=== PATIENT | male | born 1950 | race African-American/Black ===

== ENCOUNTER 2017-03-23 05:14 | Inpatient (IN) | payer OTHER ==
[~2017-03-23] VITALS: Ht 165.1 cm; Wt 70.9 kg
[~2017-03-23 05:14] MED LIST: ALBU3IS INH; ALBU90OI INH; ALBU90OI6 INH; ALBU90OI61 INH; ALBUTEROL MDI; ALPR.5 PO; AMLO5 PO; ATOR20 PO; AZIT250 PO; AZIT500 PO; BENTYL20 MG PO; BENZ100A PO; BUDE10.22 INH; BUDE6HFA INH; CLOT10 SS; CODEINE-GUAIFE120 ML PO; Carisoprodol350 MG PO; Cipro500 MG PO; Cleocin HCl300 MG PO; DULO60 PO; Flagyl250 MG PO; GABA300 PO; GUAI600T33 PO; HYDACE10B PO; LAMO25 PO; LEVA.63IS INH; LEVSOD137 PO; LIDO5TP TOP; LISI20 PO; LOSA50 PO; METO25 PO; METO25ER PO; MONT10T PO; NICO21TP TOP; Naprosyn500 MG PO; PANT40 PO; PRED10; PRED10 PO; Prednisone20 MG PO; Q-Tussin100 MG/5 M PO; TUDORZA PRESS400 MCG IH; Ventolin Soln3 ML INH; Zithromax250 MG PO; [UNRECOGNIZED DRUG - OTHER]
[2017-03-23 05:37] LABS: BASOPHILS ABSOLUTE AUTO 0.02 K/mm3 (0.00-0.23); BASOPHILS PERCENT AUTO 0 % (0-2); EOSINOPHILS ABSOLUTE AUTO 0.83 K/mm3 (0.00-0.68); EOSINOPHILS PERCENT AUTO 9 % (0-6); Hematocrit 40.6 % (37.0-53.0); Hemoglobin 13.6 g/dL (13.5-17.5); IMMATURE GRAN ABSOLUTE AUTO 0.02 K/mm3 (0.00-0.10); IMMATURE GRAN PERCENT AUTO 0 % (0-1); LYMPHOCYTES ABSOLUTE AUTO 2.07 K/mm3 (0.84-5.20); LYMPHOCYTES PERCENT AUTO 22 % (21-46); MONOCYTES ABSOLUTE AUTO 0.98 K/mm3 (0.16-1.47); MONOCYTES PERCENT AUTO 10 % (4-13); Mean Corpuscular HGB 31.2 pg (26.0-34.0); Mean Corpuscular HGB Conc 33.5 g/dL (31.5-36.5); Mean Corpuscular Volume 93 fL (80-100); Mean Platelet Volume 9.3 fL (9.1-12.4); NEUTROPHILS ABSOLUTE AUTO 5.72 K/mm3 (1.96-9.15); NEUTROPHILS PERCENT AUTO 59 % (41-73); Platelet Count 315 K/mm3 (150-400); RDW Coefficient Variation 13.3 % (11.7-14.2); RDW Standard Deviation 45.2 fL (35.1-46.3); Red Blood Cell Count 4.36 M/mm3 (4.30-5.90); White Blood Cell Count 9.64 K/mm3 (4.00-11.30)
[2017-03-23 05:55] LABS: Alanine Aminotransfer (ALT/SGP 33 U/L (12-78); Albumin, Blood 3.8 g/dL (3.4-5.0); Albumin/Globulin Ratio 0.9 (0.8-1.8); Alk Phos 83 U/L (50-136); Anion Gap 8 mmol/L (6-16); Aspartate Aminotrans (AST/SGOT 26 U/L (12-37); Bilirubin, Total 0.4 mg/dL (0.1-1.0); Blood Urea Nitrogen 15 mg/dL (8-24); Bun/Creatinine Ratio 15.6 (12.0-20.0); CO2, Blood 27 mmol/L (21-32); Calcium, Blood 8.8 mg/dL (8.5-10.1); Chloride, Blood 105 mmol/L (98-108); Creatinine, Blood 0.96 mg/dL (0.60-1.20); Globulin, Blood 4.1 g/dL (2.2-4.0); Glomerular Filtration Rate >60 (60-); Glucose, Blood 103 mg/dL (70-99); Potassium, Blood 4.1 mmol/L (3.5-5.5); Sodium, Blood 140 mmol/L (136-145); Total Protein, Blood 7.9 g/dL (6.4-8.2); Troponin I <0.015 ng/mL (0.000-0.040)
[2017-03-23 06:19] LABS: Influenza A Negative (NEGATIVE); Influenza B Negative (NEGATIVE)
[2017-03-23] MEDS ORDERED: Omeprazole20 M1 PO (10:47)
[2017-03-23] MEDS ORDERED: PREG75 PO (10:48)
[2017-03-24 05:42] LABS: BASOPHILS ABSOLUTE AUTO 0.01 K/mm3 (0.00-0.23); BASOPHILS PERCENT AUTO 0 % (0-2); EOSINOPHILS ABSOLUTE AUTO 0.01 K/mm3 (0.00-0.68); EOSINOPHILS PERCENT AUTO 0 % (0-6); Hematocrit 39.3 % (37.0-53.0); Hemoglobin 12.8 g/dL (13.5-17.5); IMMATURE GRAN ABSOLUTE AUTO 0.07 K/mm3 (0.00-0.10); IMMATURE GRAN PERCENT AUTO 0 % (0-1); LYMPHOCYTES ABSOLUTE AUTO 1.68 K/mm3 (0.84-5.20); LYMPHOCYTES PERCENT AUTO 9 % (21-46); MONOCYTES ABSOLUTE AUTO 0.72 K/mm3 (0.16-1.47); MONOCYTES PERCENT AUTO 4 % (4-13); Mean Corpuscular HGB 31.1 pg (26.0-34.0); Mean Corpuscular HGB Conc 32.6 g/dL (31.5-36.5); Mean Corpuscular Volume 95 fL (80-100); Mean Platelet Volume 9.5 fL (9.1-12.4); NEUTROPHILS ABSOLUTE AUTO 17.29 K/mm3 (1.96-9.15); NEUTROPHILS PERCENT AUTO 87 % (41-73); Platelet Count 367 K/mm3 (150-400); RDW Coefficient Variation 13.6 % (11.7-14.2); RDW Standard Deviation 47.6 fL (35.1-46.3); Red Blood Cell Count 4.12 M/mm3 (4.30-5.90); White Blood Cell Count 19.78 K/mm3 (4.00-11.30)
[2017-03-24 06:03] LABS: Anion Gap 9 mmol/L (6-16); Blood Urea Nitrogen 22 mg/dL (8-24); Bun/Creatinine Ratio 23.6 (12.0-20.0); CO2, Blood 25 mmol/L (21-32); Calcium, Blood 9.6 mg/dL (8.5-10.1); Chloride, Blood 102 mmol/L (98-108); Creatinine, Blood 0.93 mg/dL (0.60-1.20); Glomerular Filtration Rate >60 (60-); Glucose, Blood 129 mg/dL (70-99); Potassium, Blood 4.3 mmol/L (3.5-5.5); Sodium, Blood 136 mmol/L (136-145)
[2017-03-25] MEDS ORDERED: AZIT250 PO (12:01)
[2017-03-25] MEDS ORDERED: BENZ100A PO (12:01)
[2017-03-25] MEDS ORDERED: GUAI600T33 PO (12:02)
[2018-02-07] MEDS ORDERED: ROBITUSSIN100 MG/5 M PO (00:11)
[2018-02-07] MEDS ORDERED: Prednisone20 MG PO (00:11)
== END 2017-03-25 13:42 | disposition home or self-care (01) | DRG 192 ==
LOC: ER 05:14 → MEDS 08:54 → ENPENDDIS 03-25 10:00 → MEDS 03-25 13:42
PROVIDERS: Emergency Medicine; Hospitalist
DX: J44.1 Chronic obstructive pulmonary disease with (acute) exacerbation (principal); E03.9 Hypothyroidism, unspecified; I10 Essential (primary) hypertension; R73.9 Hyperglycemia, unspecified; T38.0X5A Adverse effect of glucocorticoids and synthetic analogues, initial encounter; F32.9 Major depressive disorder, single episode, unspecified; E78.5 Hyperlipidemia, unspecified; M79.7 Fibromyalgia; Z79.51 Long term (current) use of inhaled steroids; Z79.899 Other long term (current) drug therapy; Z87.891 Personal history of nicotine dependence
CPT/HCPCS: 36415; 71046; 80048; 80053; 83880; 84484; 85025; 87070; 87205; 87804; 93005; 93010; 94640; 94644; 94664; 94667; 94760; 96374; 98960; 99285; J1650; J2920; J2930

== ENCOUNTER 2017-05-16 05:08 | Emergency (ER) | payer OTHER ==
[~2017-05-16] VITALS: Ht 167.6 cm; Wt 68.0 kg
[~2017-05-16 05:08] MED LIST changes: +Omeprazole20 M1 PO; +PREG75 PO
[2017-05-16] MEDS ORDERED: VITAMIN D250000 UNIT PO (05:38)
[2017-05-16 05:45] LABS: BASOPHILS ABSOLUTE AUTO 0.06 K/mm3 (0.00-0.23); BASOPHILS PERCENT AUTO 1 % (0-2); EOSINOPHILS ABSOLUTE AUTO 1.66 K/mm3 (0.00-0.68); EOSINOPHILS PERCENT AUTO 15 % (0-6); Hematocrit 39.5 % (37.0-53.0); Hemoglobin 12.9 g/dL (13.5-17.5); IMMATURE GRAN ABSOLUTE AUTO 0.03 K/mm3 (0.00-0.10); IMMATURE GRAN PERCENT AUTO 0 % (0-1); LYMPHOCYTES PERCENT AUTO 30 % (21-46); MONOCYTES ABSOLUTE AUTO 0.92 K/mm3 (0.16-1.47); MONOCYTES PERCENT AUTO 8 % (4-13); Mean Corpuscular HGB 30.6 pg (26.0-34.0); Mean Corpuscular HGB Conc 32.7 g/dL (31.5-36.5); Mean Corpuscular Volume 94 fL (80-100); Mean Platelet Volume 9.4 fL (9.1-12.4); NEUTROPHILS ABSOLUTE AUTO 5.15 K/mm3 (1.96-9.15); NEUTROPHILS PERCENT AUTO 46 % (41-73); Platelet Count 347 K/mm3 (150-400); RDW Standard Deviation 48.3 fL (35.1-46.3); Red Blood Cell Count 4.21 M/mm3 (4.30-5.90); White Blood Cell Count 11.22 K/mm3 (4.00-11.30)
[2017-05-16 06:11] LABS: Anion Gap 9 mmol/L (6-16); Blood Urea Nitrogen 19 mg/dL (8-24); Bun/Creatinine Ratio 22.2 (12.0-20.0); CO2, Blood 24 mmol/L (21-32); Calcium, Blood 8.6 mg/dL (8.5-10.1); Chloride, Blood 107 mmol/L (98-108); Creatinine, Blood 0.86 mg/dL (0.60-1.20); Glomerular Filtration Rate >60 (60-); Glucose, Blood 102 mg/dL (70-99); Potassium, Blood 4.1 mmol/L (3.5-5.5); Sodium, Blood 140 mmol/L (136-145); Troponin I <0.015 ng/mL (0.000-0.040)
[2017-05-16] MEDS ORDERED: Prednisone20 MG PO (06:13)
[2017-05-16] MEDS ORDERED: Zithromax250 MG PO (06:13)
[2018-02-07] MEDS ORDERED: Prednisone20 MG PO (00:11)
[2018-02-07] MEDS ORDERED: ROBITUSSIN100 MG/5 M PO (00:11)
== END 2017-05-16 06:37 | disposition home or self-care (01) ==
LOC: ER 05:08
PROVIDERS: Emergency Medicine
DX: J44.1 Chronic obstructive pulmonary disease with (acute) exacerbation (principal); I10 Essential (primary) hypertension; Z87.891 Personal history of nicotine dependence; Z79.899 Other long term (current) drug therapy
CPT/HCPCS: 36415; 71046; 80048; 84484; 85025; 93005; 93010; 94644; 96361; 96374; 96375; 99284; J1885; J2930; J7030

== ENCOUNTER 2017-06-05 05:20 | Emergency (ER) | payer OTHER ==
[~2017-06-05] VITALS: Ht 170.2 cm; Wt 70.3 kg
[~2017-06-05 05:20] MED LIST changes: +VITAMIN D250000 UNIT PO
[2017-06-05 05:59] LABS: BASOPHILS ABSOLUTE AUTO 0.07 K/mm3 (0.00-0.23); BASOPHILS PERCENT AUTO 1 % (0-2); EOSINOPHILS ABSOLUTE AUTO 1.51 K/mm3 (0.00-0.68); EOSINOPHILS PERCENT AUTO 13 % (0-6); Hematocrit 40.6 % (37.0-53.0); Hemoglobin 13.3 g/dL (13.5-17.5); IMMATURE GRAN ABSOLUTE AUTO 0.03 K/mm3 (0.00-0.10); IMMATURE GRAN PERCENT AUTO 0 % (0-1); LYMPHOCYTES PERCENT AUTO 25 % (21-46); MONOCYTES ABSOLUTE AUTO 0.93 K/mm3 (0.16-1.47); MONOCYTES PERCENT AUTO 8 % (4-13); Mean Corpuscular HGB 30.7 pg (26.0-34.0); Mean Corpuscular HGB Conc 32.8 g/dL (31.5-36.5); Mean Corpuscular Volume 94 fL (80-100); Mean Platelet Volume 9.6 fL (9.1-12.4); NEUTROPHILS ABSOLUTE AUTO 6.07 K/mm3 (1.96-9.15); NEUTROPHILS PERCENT AUTO 53 % (41-73); Platelet Count 312 K/mm3 (150-400); RDW Coefficient Variation 13.9 % (11.7-14.2); RDW Standard Deviation 47.8 fL (35.1-46.3); Red Blood Cell Count 4.33 M/mm3 (4.30-5.90); White Blood Cell Count 11.51 K/mm3 (4.00-11.30)
[2017-06-05 06:21] LABS: Alanine Aminotransfer (ALT/SGP 29 U/L (12-78); Albumin, Blood 3.8 g/dL (3.4-5.0); Albumin/Globulin Ratio 1.1 (0.8-1.8); Alk Phos 77 U/L (50-136); Anion Gap 7 mmol/L (6-16); Aspartate Aminotrans (AST/SGOT 18 U/L (12-37); Bilirubin, Total 0.7 mg/dL (0.1-1.0); Blood Urea Nitrogen 19 mg/dL (8-24); Bun/Creatinine Ratio 20.4 (12.0-20.0); CO2, Blood 26 mmol/L (21-32); Calcium, Blood 8.8 mg/dL (8.5-10.1); Chloride, Blood 105 mmol/L (98-108); Creatinine, Blood 0.93 mg/dL (0.60-1.20); Globulin, Blood 3.6 g/dL (2.2-4.0); Glomerular Filtration Rate >60 (60-); Glucose, Blood 105 mg/dL (70-99); Potassium, Blood 3.9 mmol/L (3.5-5.5); Sodium, Blood 138 mmol/L (136-145); Total Protein, Blood 7.4 g/dL (6.4-8.2)
[2017-06-05] MEDS ORDERED: Duoneb 2.5-0.5 M3 ML INH (07:53)
[2017-06-05] MEDS ORDERED: Prednisone20 MG PO (07:53)
[2018-02-07] MEDS ORDERED: Prednisone20 MG PO (00:11)
[2018-02-07] MEDS ORDERED: ROBITUSSIN100 MG/5 M PO (00:11)
== END 2017-06-05 08:02 | disposition home or self-care (01) ==
LOC: ER 05:20
PROVIDERS: Emergency Medicine
DX: J44.1 Chronic obstructive pulmonary disease with (acute) exacerbation (principal); I10 Essential (primary) hypertension; Z87.891 Personal history of nicotine dependence; Z79.899 Other long term (current) drug therapy
CPT/HCPCS: 36415; 71046; 80053; 85025; 93005; 93010; 94640; 94644; 96374; 99283; J2930

== ENCOUNTER 2017-07-05 21:15 | Inpatient (IN) | payer OTHER ==
[~2017-07-05] VITALS: Ht 167.6 cm; Wt 70.7 kg
[~2017-07-05 21:15] MED LIST changes: +Duoneb 2.5-0.5 M3 ML INH
[2017-07-05 21:50] LABS: BASOPHILS ABSOLUTE AUTO 0.09 K/mm3 (0.00-0.23); BASOPHILS PERCENT AUTO 1 % (0-2); EOSINOPHILS ABSOLUTE AUTO 1.56 K/mm3 (0.00-0.68); EOSINOPHILS PERCENT AUTO 14 % (0-6); Hematocrit 39.1 % (37.0-53.0); Hemoglobin 13.2 g/dL (13.5-17.5); IMMATURE GRAN ABSOLUTE AUTO 0.06 K/mm3 (0.00-0.10); IMMATURE GRAN PERCENT AUTO 1 % (0-1); LYMPHOCYTES ABSOLUTE AUTO 3.74 K/mm3 (0.84-5.20); LYMPHOCYTES PERCENT AUTO 33 % (21-46); MONOCYTES ABSOLUTE AUTO 1.12 K/mm3 (0.16-1.47); MONOCYTES PERCENT AUTO 10 % (4-13); Mean Corpuscular HGB 31.3 pg (26.0-34.0); Mean Corpuscular HGB Conc 33.8 g/dL (31.5-36.5); Mean Corpuscular Volume 93 fL (80-100); Mean Platelet Volume 9.1 fL (9.1-12.4); NEUTROPHILS ABSOLUTE AUTO 4.62 K/mm3 (1.96-9.15); NEUTROPHILS PERCENT AUTO 41 % (41-73); Platelet Count 366 K/mm3 (150-400); RDW Coefficient Variation 13.7 % (11.7-14.2); RDW Standard Deviation 46.6 fL (35.1-46.3); Red Blood Cell Count 4.22 M/mm3 (4.30-5.90); White Blood Cell Count 11.19 K/mm3 (4.00-11.30)
[2017-07-05 22:07] LABS: Alanine Aminotransfer (ALT/SGP 34 U/L (12-78); Albumin, Blood 3.7 g/dL (3.4-5.0); Alk Phos 77 U/L (50-136); Anion Gap 7 mmol/L (6-16); Aspartate Aminotrans (AST/SGOT 20 U/L (12-37); Bilirubin, Total 0.3 mg/dL (0.1-1.0); Blood Urea Nitrogen 16 mg/dL (8-24); Bun/Creatinine Ratio 15.2 (12.0-20.0); CO2, Blood 27 mmol/L (21-32); Calcium, Blood 8.7 mg/dL (8.5-10.1); Chloride, Blood 108 mmol/L (98-108); Creatinine, Blood 1.05 mg/dL (0.60-1.20); Globulin, Blood 3.7 g/dL (2.2-4.0); Glomerular Filtration Rate >60 (60-); Glucose, Blood 115 mg/dL (70-99); Potassium, Blood 3.7 mmol/L (3.5-5.5); Sodium, Blood 142 mmol/L (136-145); Total Protein, Blood 7.4 g/dL (6.4-8.2)
[2017-07-06 05:10] LABS: BASOPHILS ABSOLUTE AUTO 0.03 K/mm3 (0.00-0.23); BASOPHILS PERCENT AUTO 0 % (0-2); EOSINOPHILS ABSOLUTE AUTO 0.04 K/mm3 (0.00-0.68); EOSINOPHILS PERCENT AUTO 0 % (0-6); Hematocrit 38.5 % (37.0-53.0); Hemoglobin 12.8 g/dL (13.5-17.5); IMMATURE GRAN ABSOLUTE AUTO 0.04 K/mm3 (0.00-0.10); IMMATURE GRAN PERCENT AUTO 0 % (0-1); LYMPHOCYTES ABSOLUTE AUTO 1.21 K/mm3 (0.84-5.20); LYMPHOCYTES PERCENT AUTO 14 % (21-46); MONOCYTES ABSOLUTE AUTO 0.08 K/mm3 (0.16-1.47); MONOCYTES PERCENT AUTO 1 % (4-13); Mean Corpuscular HGB 30.5 pg (26.0-34.0); Mean Corpuscular HGB Conc 33.2 g/dL (31.5-36.5); Mean Corpuscular Volume 92 fL (80-100); Mean Platelet Volume 9.4 fL (9.1-12.4); NEUTROPHILS ABSOLUTE AUTO 7.59 K/mm3 (1.96-9.15); NEUTROPHILS PERCENT AUTO 85 % (41-73); Platelet Count 394 K/mm3 (150-400); RDW Coefficient Variation 13.7 % (11.7-14.2); RDW Standard Deviation 46.5 fL (35.1-46.3); Red Blood Cell Count 4.19 M/mm3 (4.30-5.90); White Blood Cell Count 8.99 K/mm3 (4.00-11.30)
[2017-07-06 05:39] LABS: Alanine Aminotransfer (ALT/SGP 33 U/L (12-78); Albumin, Blood 3.6 g/dL (3.4-5.0); Albumin/Globulin Ratio 0.9 (0.8-1.8); Alk Phos 75 U/L (50-136); Anion Gap 9 mmol/L (6-16); Aspartate Aminotrans (AST/SGOT 21 U/L (12-37); Bilirubin, Total 0.2 mg/dL (0.1-1.0); Blood Urea Nitrogen 18 mg/dL (8-24); CO2, Blood 24 mmol/L (21-32); Calcium, Blood 9.1 mg/dL (8.5-10.1); Chloride, Blood 105 mmol/L (98-108); Globulin, Blood 3.8 g/dL (2.2-4.0); Glomerular Filtration Rate >60 (60-); Glucose, Blood 159 mg/dL (70-99); Potassium, Blood 4.4 mmol/L (3.5-5.5); Sodium, Blood 138 mmol/L (136-145); Total Protein, Blood 7.4 g/dL (6.4-8.2)
[2017-07-06 08:33] LABS: Influenza A Negative (NEGATIVE); Influenza B Negative (NEGATIVE)
[2017-07-07] MEDS ORDERED: Cymbalta30 MG PO (10:15)
[2017-07-07] MEDS ORDERED: ROBITUSSIN COU237 ML PO (10:15)
[2017-07-07] MEDS ORDERED: [UNRECOGNIZED DRUG - OTHER] PO (10:18)
[2017-07-07] MEDS ORDERED: LEVO750 PO (10:18)
[2017-07-07] MEDS ORDERED: PRED20 PO (10:19)
== END 2017-07-07 12:03 | disposition home or self-care (01) | DRG 189 ==
LOC: ER 21:15 → MEDS 21:16
PROVIDERS: Emergency Medicine; Internal Medicine
DX: J96.01 Acute respiratory failure with hypoxia (principal); J44.1 Chronic obstructive pulmonary disease with (acute) exacerbation; F32.9 Major depressive disorder, single episode, unspecified; M79.7 Fibromyalgia; I10 Essential (primary) hypertension; E03.9 Hypothyroidism, unspecified
CPT/HCPCS: 36415; 71046; 80053; 85025; 87070; 87205; 87804; 93005; 93010; 94640; 94760; 96365; 96375; 99285; J1650; J1956; J2930; J3010

== ENCOUNTER 2017-08-14 07:52 | Emergency (ER) | payer OTHER ==
[~2017-08-14] VITALS: Ht 170.2 cm; Wt 70.3 kg
[~2017-08-14 07:52] MED LIST changes: +Cymbalta30 MG PO; +LEVO750 PO; +PRED20 PO; +ROBITUSSIN COU237 ML PO; +[UNRECOGNIZED DRUG - OTHER] PO
[2017-08-14] MEDS ORDERED: PREG75 PO (08:25)
[2017-08-14] MEDS ORDERED: MULTI VITAMIN1 EACH PO (08:29)
[2017-08-14] MEDS ORDERED: MAGNESIUM PO (08:29)
[2017-08-14] MEDS ORDERED: BUDE6HFA INH (08:30)
[2017-08-14 08:31] LABS: BASOPHILS ABSOLUTE AUTO 0.03 K/mm3 (0.00-0.23); BASOPHILS PERCENT AUTO 0 % (0-2); EOSINOPHILS ABSOLUTE AUTO 0.86 K/mm3 (0.00-0.68); EOSINOPHILS PERCENT AUTO 10 % (0-6); Hematocrit 41.9 % (37.0-53.0); Hemoglobin 13.5 g/dL (13.5-17.5); IMMATURE GRAN ABSOLUTE AUTO 0.02 K/mm3 (0.00-0.10); IMMATURE GRAN PERCENT AUTO 0 % (0-1); LYMPHOCYTES ABSOLUTE AUTO 2.37 K/mm3 (0.84-5.20); LYMPHOCYTES PERCENT AUTO 28 % (21-46); MONOCYTES ABSOLUTE AUTO 0.98 K/mm3 (0.16-1.47); MONOCYTES PERCENT AUTO 12 % (4-13); Mean Corpuscular HGB 30.6 pg (26.0-34.0); Mean Corpuscular HGB Conc 32.2 g/dL (31.5-36.5); Mean Corpuscular Volume 95 fL (80-100); Mean Platelet Volume 9.1 fL (9.1-12.4); NEUTROPHILS ABSOLUTE AUTO 4.22 K/mm3 (1.96-9.15); NEUTROPHILS PERCENT AUTO 50 % (41-73); Platelet Count 336 K/mm3 (150-400); RDW Coefficient Variation 13.3 % (11.7-14.2); RDW Standard Deviation 47.1 fL (35.1-46.3); Red Blood Cell Count 4.41 M/mm3 (4.30-5.90); White Blood Cell Count 8.48 K/mm3 (4.00-11.30)
[2017-08-14] MEDS ORDERED: Flonase 0.05% N16 GM (08:44)
[2017-08-14] MEDS ORDERED: Duoneb 2.5-0.5 M3 ML INH (08:45)
[2017-08-14 08:56] LABS: Alanine Aminotransfer (ALT/SGP 30 U/L (12-78); Albumin, Blood 3.5 g/dL (3.4-5.0); Albumin/Globulin Ratio 0.9 (0.8-1.8); Alk Phos 80 U/L (50-136); Anion Gap 6 mmol/L (6-16); Aspartate Aminotrans (AST/SGOT 21 U/L (12-37); Bilirubin, Total 0.3 mg/dL (0.1-1.0); Blood Urea Nitrogen 14 mg/dL (8-24); Bun/Creatinine Ratio 15.6 (12.0-20.0); CO2, Blood 28 mmol/L (21-32); Calcium, Blood 8.4 mg/dL (8.5-10.1); Chloride, Blood 107 mmol/L (98-108); Globulin, Blood 3.7 g/dL (2.2-4.0); Glomerular Filtration Rate >60 (60-); Glucose, Blood 99 mg/dL (70-99); Potassium, Blood 4.2 mmol/L (3.5-5.5); Sodium, Blood 141 mmol/L (136-145); Total Protein, Blood 7.2 g/dL (6.4-8.2); Troponin I <0.015 ng/mL (0.000-0.040)
[2017-08-14] MEDS ORDERED: Prednisone20 MG PO (10:25)
[2017-08-14] MEDS ORDERED: Zithromax250 MG PO (10:25)
== END 2017-08-14 10:50 | disposition home or self-care (01) ==
LOC: ER 07:52
PROVIDERS: Emergency Medicine
DX: J44.1 Chronic obstructive pulmonary disease with (acute) exacerbation (principal); I10 Essential (primary) hypertension; Z87.891 Personal history of nicotine dependence; Z79.899 Other long term (current) drug therapy; Z79.52 Long term (current) use of systemic steroids
CPT/HCPCS: 36415; 71046; 80053; 83605; 84484; 85025; 87040; 87070; 87205; 93005; 93010; 94644; 96361; 96374; 96375; 99284; J0696; J2930; J7030

== ENCOUNTER 2017-08-28 06:27 | Emergency (ER) | payer OTHER ==
[~2017-08-28] VITALS: Ht 170.2 cm; Wt 70.3 kg
[~2017-08-28 06:27] MED LIST changes: +Flonase 0.05% N16 GM; +MAGNESIUM PO; +MULTI VITAMIN1 EACH PO
[2017-08-28] MEDS ORDERED: Robaxin500 MG PO (09:07)
== END 2017-08-28 09:30 | disposition home or self-care (01) ==
LOC: ER 06:27
DX: S20.211A Contusion of right front wall of thorax, initial encounter (principal); J44.9 Chronic obstructive pulmonary disease, unspecified; I10 Essential (primary) hypertension; Z79.899 Other long term (current) drug therapy; Z87.891 Personal history of nicotine dependence; W06.XXXA Fall from bed, initial encounter
CPT/HCPCS: 71101; 99283

== ENCOUNTER 2017-09-02 15:23 | Emergency (ER) | payer OTHER ==
[~2017-09-02] VITALS: Ht 167.6 cm; Wt 70.3 kg
[~2017-09-02 15:23] MED LIST changes: +Robaxin500 MG PO
[2017-09-02 16:17] LABS: BASOPHILS ABSOLUTE AUTO 0.08 K/mm3 (0.00-0.23); BASOPHILS PERCENT AUTO 1 % (0-2); EOSINOPHILS ABSOLUTE AUTO 1.19 K/mm3 (0.00-0.68); EOSINOPHILS PERCENT AUTO 10 % (0-6); Hematocrit 42.9 % (37.0-53.0); Hemoglobin 14.1 g/dL (13.5-17.5); IMMATURE GRAN ABSOLUTE AUTO 0.04 K/mm3 (0.00-0.10); IMMATURE GRAN PERCENT AUTO 0 % (0-1); LYMPHOCYTES ABSOLUTE AUTO 2.96 K/mm3 (0.84-5.20); LYMPHOCYTES PERCENT AUTO 25 % (21-46); MONOCYTES ABSOLUTE AUTO 0.97 K/mm3 (0.16-1.47); MONOCYTES PERCENT AUTO 8 % (4-13); Mean Corpuscular HGB 30.9 pg (26.0-34.0); Mean Corpuscular HGB Conc 32.9 g/dL (31.5-36.5); Mean Corpuscular Volume 94 fL (80-100); Mean Platelet Volume 9.4 fL (9.1-12.4); NEUTROPHILS ABSOLUTE AUTO 6.45 K/mm3 (1.96-9.15); NEUTROPHILS PERCENT AUTO 55 % (41-73); Platelet Count 329 K/mm3 (150-400); RDW Coefficient Variation 13.7 % (11.7-14.2); RDW Standard Deviation 46.9 fL (35.1-46.3); Red Blood Cell Count 4.57 M/mm3 (4.30-5.90); White Blood Cell Count 11.69 K/mm3 (4.00-11.30)
[2017-09-02 16:52] LABS: Alanine Aminotransfer (ALT/SGP 42 U/L (12-78); Albumin, Blood 3.8 g/dL (3.4-5.0); Alk Phos 81 U/L (50-136); Anion Gap 8 mmol/L (6-16); Aspartate Aminotrans (AST/SGOT 26 U/L (12-37); Bilirubin, Total 0.4 mg/dL (0.1-1.0); Blood Urea Nitrogen 18 mg/dL (8-24); Bun/Creatinine Ratio 18.1 (12.0-20.0); CO2, Blood 29 mmol/L (21-32); Calcium, Blood 9.1 mg/dL (8.5-10.1); Chloride, Blood 103 mmol/L (98-108); Globulin, Blood 3.9 g/dL (2.2-4.0); Glomerular Filtration Rate >60 (60-); Glucose, Blood 110 mg/dL (70-99); Potassium, Blood 4.1 mmol/L (3.5-5.5); Sodium, Blood 140 mmol/L (136-145); Total Protein, Blood 7.7 g/dL (6.4-8.2)
[2017-09-02] MEDS ORDERED: Zithromax250 MG PO (20:02)
[2017-09-02] MEDS ORDERED: Prednisone20 MG PO (20:02)
== END 2017-09-02 20:33 | disposition home or self-care (01) ==
LOC: ER 15:23
PROVIDERS: Emergency Medicine
DX: J44.1 Chronic obstructive pulmonary disease with (acute) exacerbation (principal); Z79.899 Other long term (current) drug therapy; Z79.2 Long term (current) use of antibiotics; Z79.52 Long term (current) use of systemic steroids; J44.9 Chronic obstructive pulmonary disease, unspecified; I10 Essential (primary) hypertension; Z87.891 Personal history of nicotine dependence
CPT/HCPCS: 36415; 71046; 80053; 85025; 93005; 93010; 94640; 96361; 96374; 96375; 99284; J1885; J2930; J7030

== ENCOUNTER 2017-09-22 18:57 | Inpatient (IN) | payer OTHER ==
[~2017-09-22] VITALS: Ht 165.1 cm; Wt 75.5 kg
[2017-09-22 19:18] LABS: BASOPHILS ABSOLUTE AUTO 0.06 K/mm3 (0.00-0.23); BASOPHILS PERCENT AUTO 1 % (0-2); EOSINOPHILS ABSOLUTE AUTO 1.41 K/mm3 (0.00-0.68); EOSINOPHILS PERCENT AUTO 12 % (0-6); Hematocrit 40.6 % (37.0-53.0); Hemoglobin 13.2 g/dL (13.5-17.5); IMMATURE GRAN ABSOLUTE AUTO 0.04 K/mm3 (0.00-0.10); IMMATURE GRAN PERCENT AUTO 0 % (0-1); LYMPHOCYTES PERCENT AUTO 23 % (21-46); MONOCYTES ABSOLUTE AUTO 1.37 K/mm3 (0.16-1.47); MONOCYTES PERCENT AUTO 12 % (4-13); Mean Corpuscular HGB Conc 32.5 g/dL (31.5-36.5); Mean Corpuscular Volume 95 fL (80-100); Mean Platelet Volume 9.2 fL (9.1-12.4); NEUTROPHILS ABSOLUTE AUTO 6.14 K/mm3 (1.96-9.15); NEUTROPHILS PERCENT AUTO 53 % (41-73); Platelet Count 335 K/mm3 (150-400); RDW Coefficient Variation 13.8 % (11.7-14.2); RDW Standard Deviation 48.1 fL (35.1-46.3); Red Blood Cell Count 4.26 M/mm3 (4.30-5.90); White Blood Cell Count 11.72 K/mm3 (4.00-11.30)
[2017-09-22 19:40] LABS: Alanine Aminotransfer (ALT/SGP 31 U/L (12-78); Albumin, Blood 4.2 g/dL (3.4-5.0); Albumin/Globulin Ratio 1.1 (0.8-1.8); Alk Phos 113 U/L (50-136); Anion Gap 8 mmol/L (6-16); Aspartate Aminotrans (AST/SGOT 30 U/L (12-37); Bilirubin, Total 0.5 mg/dL (0.1-1.0); Blood Urea Nitrogen 18 mg/dL (8-24); Bun/Creatinine Ratio 17.5 (12.0-20.0); CO2, Blood 28 mmol/L (21-32); Calcium, Blood 8.7 mg/dL (8.5-10.1); Chloride, Blood 107 mmol/L (98-108); Creatinine, Blood 1.03 mg/dL (0.60-1.20); Globulin, Blood 3.8 g/dL (2.2-4.0); Glomerular Filtration Rate >60 (60-); Glucose, Blood 121 mg/dL (70-99); Potassium, Blood 4.4 mmol/L (3.5-5.5); Sodium, Blood 143 mmol/L (136-145); Troponin I <0.015 ng/mL (0.000-0.040)
[2017-09-22] MEDS ORDERED: TUDORZA PRESS400 MCG INH (22:44)
[2017-09-22] MEDS ORDERED: ACET500 PO (22:46)
[2017-09-28 04:45] LABS: Anion Gap 8 mmol/L (6-16); Blood Urea Nitrogen 31 mg/dL (8-24); Bun/Creatinine Ratio 27.4 (12.0-20.0); CO2, Blood 29 mmol/L (21-32); Chloride, Blood 100 mmol/L (98-108); Creatinine, Blood 1.13 mg/dL (0.60-1.20); Glomerular Filtration Rate >60 (60-); Glucose, Blood 140 mg/dL (70-99); Potassium, Blood 4.5 mmol/L (3.5-5.5); Sodium, Blood 137 mmol/L (136-145)
[2017-09-28] MEDS ORDERED: ROBITUSSIN NIG237 ML PO (12:17)
[2017-09-28] MEDS ORDERED: PRED20 (12:18)
== END 2017-09-28 15:56 | disposition home or self-care (01) | DRG 189 ==
LOC: ER 18:57 → MEDS 20:32 → PCU 20:32 → MEDS 09-24 14:10 → ENPENDDIS 09-28 11:00 → MEDS 09-28 15:56
PROVIDERS: Emergency Medicine; Internal Medicine
PROC: 5A09357 Assistance with Respiratory Ventilation, Less than 24 Consecutive Hours, Continuous Positive Airway Pressure (ICD-10-PCS; principal; 2017-09-22)
DX: J96.21 Acute and chronic respiratory failure with hypoxia (principal); J44.1 Chronic obstructive pulmonary disease with (acute) exacerbation; J96.22 Acute and chronic respiratory failure with hypercapnia; J20.9 Acute bronchitis, unspecified; I10 Essential (primary) hypertension; E03.9 Hypothyroidism, unspecified; M79.7 Fibromyalgia; F40.240 Claustrophobia; F41.8 Other specified anxiety disorders; I16.0 Hypertensive urgency; F17.200 Nicotine dependence, unspecified, uncomplicated; T38.0X5A Adverse effect of glucocorticoids and synthetic analogues, initial encounter; Y92.9 Unspecified place or not applicable; D72.829 Elevated white blood cell count, unspecified; G47.33 Obstructive sleep apnea (adult) (pediatric); E78.5 Hyperlipidemia, unspecified
CPT/HCPCS: 36415; 71045; 80048; 80053; 83880; 84145; 84484; 85025; 92610; 93005; 93010; 94640; 94644; 94660; 94667; 94760; 94762; 96365; 96366; 96368; 96375; 99285-25; C9113; G8996; G8997; J0456; J1100; J1650; J1956; J2060; J2920; J2930; J3010; J3475; J7050

== ENCOUNTER → 2017-12-13 | Outpatient (CLI) | payer OTHER ==
[~2017-12-13] MED LIST changes: +ACET500 PO; +PRED20; +ROBITUSSIN NIG237 ML PO; +TUDORZA PRESS400 MCG INH
[2017-12-13 13:38] LABS: U Amphetamine Screen Not Detected; U Barbituate Screen Not Detected; U Benzodiazapine Screen Not Detected; U Buprenorphine Screen Not Detected; U Cannabinoids Screen Not Detected; U Cocaine Screen Not Detected; U Methadone Screen Not Detected; U Methamphetamine Screen Not Detected; U Opiates Screen Not Detected; U Oxycodone Screen Not Detected; U Phencyclidine Screen Not Detected; U Propoxyphene Screen Not Detected
== END ==
LOC: LAB SHORT 12:31 → LAB 12:31
PROVIDERS: Nurse Practitioner Family
DX: M54.9 Dorsalgia, unspecified (principal); G89.29 Other chronic pain; Z79.899 Other long term (current) drug therapy
CPT/HCPCS: G0480

== ENCOUNTER 2018-09-06 17:58 | Emergency (ER) | payer OTHER, SELFPAY ==
[~2018-09-06] VITALS: Ht 167.6 cm; Wt 77.6 kg
[~2018-09-06 17:58] MED LIST changes: +ROBITUSSIN100 MG/5 M PO
[2018-09-06 18:47] LABS: BASOPHILS ABSOLUTE AUTO 0.06 K/mm3 (0.00-0.23); BASOPHILS PERCENT AUTO 1 % (0-2); EOSINOPHILS ABSOLUTE AUTO 1.04 K/mm3 (0.00-0.68); EOSINOPHILS PERCENT AUTO 8 % (0-6); Hematocrit 41.7 % (37.0-53.0); Hemoglobin 13.6 g/dL (13.5-17.5); IMMATURE GRAN ABSOLUTE AUTO 0.03 K/mm3 (0.00-0.10); IMMATURE GRAN PERCENT AUTO 0 % (0-1); LYMPHOCYTES ABSOLUTE AUTO 2.59 K/mm3 (0.84-5.20); LYMPHOCYTES PERCENT AUTO 21 % (21-46); MONOCYTES ABSOLUTE AUTO 0.78 K/mm3 (0.16-1.47); MONOCYTES PERCENT AUTO 6 % (4-13); Mean Corpuscular HGB 30.3 pg (26.0-34.0); Mean Corpuscular HGB Conc 32.6 g/dL (31.5-36.5); Mean Corpuscular Volume 93 fL (80-100); Mean Platelet Volume 9.4 fL (9.1-12.4); NEUTROPHILS ABSOLUTE AUTO 7.87 K/mm3 (1.96-9.15); NEUTROPHILS PERCENT AUTO 64 % (41-73); Platelet Count 358 K/mm3 (150-400); RDW Coefficient Variation 14.1 % (11.7-14.2); RDW Standard Deviation 48.3 fL (35.1-46.3); Red Blood Cell Count 4.49 M/mm3 (4.30-5.90); White Blood Cell Count 12.37 K/mm3 (4.00-11.30)
[2018-09-06 19:15] LABS: Alanine Aminotransfer (ALT/SGP 29 U/L (12-78); Albumin, Blood 3.8 g/dL (3.4-5.0); Albumin/Globulin Ratio 1.1 (0.8-1.8); Alk Phos 93 U/L (50-136); Anion Gap 5 mmol/L (6-16); Aspartate Aminotrans (AST/SGOT 20 U/L (12-37); Bilirubin, Total 0.5 mg/dL (0.1-1.0); Blood Urea Nitrogen 8 mg/dL (8-24); Bun/Creatinine Ratio 9.5 (12.0-20.0); CO2, Blood 31 mmol/L (21-32); Calcium, Blood 9.4 mg/dL (8.5-10.1); Chloride, Blood 106 mmol/L (98-108); Creatinine, Blood 0.84 mg/dL (0.60-1.20); Globulin, Blood 3.6 g/dL (2.2-4.0); Glomerular Filtration Rate >60 (60-); Glucose, Blood 117 mg/dL (70-99); Potassium, Blood 4.1 mmol/L (3.5-5.5); Sodium, Blood 142 mmol/L (136-145); Total Protein, Blood 7.4 g/dL (6.4-8.2); Troponin I <0.015 ng/mL (0.000-0.040)
[2018-09-06] MEDS ORDERED: AMIT75 (19:16)
[2018-09-06] MEDS ORDERED: TAMS.4ER PO (19:17)
[2018-09-06] MEDS ORDERED: DULO30 PO (19:17)
[2018-09-06] MEDS ORDERED: AZIT250 PO (19:33)
[2018-09-06] MEDS ORDERED: PRED10 PO (19:33)
== END 2018-09-06 20:16 | disposition home or self-care (01) ==
LOC: ER 17:58
PROVIDERS: Emergency Medicine
DX: J44.1 Chronic obstructive pulmonary disease with (acute) exacerbation (principal); I10 Essential (primary) hypertension; Z87.891 Personal history of nicotine dependence; Z79.899 Other long term (current) drug therapy
CPT/HCPCS: 36415; 71046; 80053; 84484; 85025; 93005; 93010; 94644; 96374; 99285-25; J2930

== ENCOUNTER 2018-11-06 11:03 | Emergency (ER) | payer OTHER ==
[~2018-11-06] VITALS: Ht 167.6 cm; Wt 77.1 kg
[~2018-11-06 11:03] MED LIST changes: +AMIT75; +DULO30 PO; +TAMS.4ER PO
[2018-11-06 11:51] LABS: BASOPHILS ABSOLUTE AUTO 0.03 K/mm3 (0.00-0.23); BASOPHILS PERCENT AUTO 0 % (0-2); EOSINOPHILS ABSOLUTE AUTO 0.82 K/mm3 (0.00-0.68); EOSINOPHILS PERCENT AUTO 8 % (0-6); Hematocrit 39.7 % (37.0-53.0); Hemoglobin 12.9 g/dL (13.5-17.5); IMMATURE GRAN ABSOLUTE AUTO 0.03 K/mm3 (0.00-0.10); IMMATURE GRAN PERCENT AUTO 0 % (0-1); LYMPHOCYTES ABSOLUTE AUTO 2.99 K/mm3 (0.84-5.20); LYMPHOCYTES PERCENT AUTO 31 % (21-46); MONOCYTES ABSOLUTE AUTO 0.86 K/mm3 (0.16-1.47); MONOCYTES PERCENT AUTO 9 % (4-13); Mean Corpuscular HGB 30.9 pg (26.0-34.0); Mean Corpuscular HGB Conc 32.5 g/dL (31.5-36.5); Mean Corpuscular Volume 95 fL (80-100); Mean Platelet Volume 9.1 fL (9.1-12.4); NEUTROPHILS ABSOLUTE AUTO 5.07 K/mm3 (1.96-9.15); NEUTROPHILS PERCENT AUTO 52 % (41-73); Platelet Count 320 K/mm3 (150-400); RDW Coefficient Variation 13.7 % (11.7-14.2); Red Blood Cell Count 4.17 M/mm3 (4.30-5.90)
[2018-11-06 12:36] LABS: Troponin I <0.015 ng/mL (0.000-0.040)
[2018-11-06 12:38] LABS: Alanine Aminotransfer (ALT/SGP 28 U/L (12-78); Albumin, Blood 3.6 g/dL (3.4-5.0); Albumin/Globulin Ratio 1.1 (0.8-1.8); Alk Phos 78 U/L (50-136); Anion Gap 6 mmol/L (6-16); Aspartate Aminotrans (AST/SGOT 18 U/L (12-37); Bilirubin, Total 0.3 mg/dL (0.1-1.0); Blood Urea Nitrogen 15 mg/dL (8-24); CO2, Blood 27 mmol/L (21-32); Calcium, Blood 8.6 mg/dL (8.5-10.1); Chloride, Blood 110 mmol/L (98-108); Creatinine, Blood 0.83 mg/dL (0.60-1.20); Globulin, Blood 3.4 g/dL (2.2-4.0); Glomerular Filtration Rate >60 (60-); Glucose, Blood 107 mg/dL (70-99); Potassium, Blood 3.9 mmol/L (3.5-5.5); Sodium, Blood 143 mmol/L (136-145)
[2018-11-06] MEDS ORDERED: Prednisone20 MG PO (14:32)
[2018-11-06] MEDS ORDERED: Mucinex600 MG PO (14:32)
[2018-11-06] MEDS ORDERED: Zithromax250 MG PO (14:32)
== END 2018-11-06 15:00 | disposition home or self-care (01) ==
LOC: ER 11:03
PROVIDERS: Internal Medicine
DX: J44.1 Chronic obstructive pulmonary disease with (acute) exacerbation (principal); Z79.899 Other long term (current) drug therapy; Z79.52 Long term (current) use of systemic steroids; I10 Essential (primary) hypertension; E03.9 Hypothyroidism, unspecified; Z87.891 Personal history of nicotine dependence
CPT/HCPCS: 36415; 71046; 80053; 84484; 85025; 93005; 93010; 94644; 96374; 96375; 99284-25; J1100; J2930

== ENCOUNTER 2018-12-07 11:12 | Emergency (ER) | payer OTHER ==
[~2018-12-07] VITALS: Ht 165.1 cm; Wt 79.4 kg
[~2018-12-07 11:12] MED LIST changes: +Mucinex600 MG PO
[2018-12-07] MEDS ORDERED: Cymbalta20 MG PT (13:02)
[2018-12-07] MEDS ORDERED: DULO60 PO (13:03)
[2018-12-07] MEDS ORDERED: OMEPRAZOLE MAGN20 MG PO (13:04)
[2018-12-07] MEDS ORDERED: VITAMIN D250000 UNIT PO (13:05)
[2018-12-07] MEDS ORDERED: AMLODIPINE-ATO1 EAC2 PO (13:05)
[2018-12-07] MEDS ORDERED: Flonase 0.05% N16 GM (13:05)
[2018-12-07] MEDS ORDERED: Prednisone20 MG PO (14:53)
[2018-12-07] MEDS ORDERED: Cheratussin AC118 ML PO ×3 (14:53→15:16)
[2018-12-07] MEDS ORDERED: TESSALON PERLE100 MG PO (14:53)
== END 2018-12-07 15:27 | disposition home or self-care (01) ==
LOC: ER 11:12
DX: J44.1 Chronic obstructive pulmonary disease with (acute) exacerbation (principal); I10 Essential (primary) hypertension; Z87.891 Personal history of nicotine dependence
CPT/HCPCS: 71046; 71100; 99283-25

== ENCOUNTER 2019-02-26 19:29 | Emergency (ER) | payer OTHER ==
[~2019-02-26] VITALS: Ht 165.1 cm; Wt 81.7 kg
[~2019-02-26 19:29] MED LIST changes: +AMLODIPINE-ATO1 EAC2 PO; +Cheratussin AC118 ML PO; +Cymbalta20 MG PT; +Guaifenesin-Co118 ML PO; +OMEPRAZOLE MAGN20 MG PO; +TESSALON PERLE100 MG PO
[2019-02-26 20:12] LABS: BASOPHILS ABSOLUTE AUTO 0.03 K/mm3 (0.00-0.23); BASOPHILS PERCENT AUTO 0 % (0-2); EOSINOPHILS ABSOLUTE AUTO 0.53 K/mm3 (0.00-0.68); EOSINOPHILS PERCENT AUTO 7 % (0-6); Hematocrit 39.4 % (37.0-53.0); Hemoglobin 12.7 g/dL (13.5-17.5); IMMATURE GRAN ABSOLUTE AUTO 0.03 K/mm3 (0.00-0.10); IMMATURE GRAN PERCENT AUTO 0 % (0-1); LYMPHOCYTES ABSOLUTE AUTO 1.38 K/mm3 (0.84-5.20); LYMPHOCYTES PERCENT AUTO 18 % (21-46); MONOCYTES ABSOLUTE AUTO 0.92 K/mm3 (0.16-1.47); MONOCYTES PERCENT AUTO 12 % (4-13); Mean Corpuscular HGB 31.3 pg (26.0-34.0); Mean Corpuscular HGB Conc 32.2 g/dL (31.5-36.5); Mean Corpuscular Volume 97 fL (80-100); NEUTROPHILS PERCENT AUTO 62 % (41-73); RDW Coefficient Variation 14.1 % (11.7-14.2); RDW Standard Deviation 50.4 fL (35.1-46.3); Red Blood Cell Count 4.06 M/mm3 (4.30-5.90); White Blood Cell Count 7.69 K/mm3 (4.00-11.30)
[2019-02-26 20:17] LABS: Influenza A Negative (NEGATIVE); Influenza B Positive (NEGATIVE)
[2019-02-26 20:23] LABS: Mean Platelet Volume 9.8 fL (9.1-12.4)
[2019-02-26 20:24] LABS: Platelet Count 297 K/mm3 (150-400)
[2019-02-26 20:29] LABS: Alanine Aminotransfer (ALT/SGP 51 U/L (12-78); Albumin, Blood 3.7 g/dL (3.4-5.0); Alk Phos 89 U/L (50-136); Anion Gap 7 mmol/L (6-16); Aspartate Aminotrans (AST/SGOT 52 U/L (12-37); Bilirubin, Total 0.2 mg/dL (0.1-1.0); Blood Urea Nitrogen 12 mg/dL (8-24); Bun/Creatinine Ratio 11.2 (12.0-20.0); CO2, Blood 24 mmol/L (21-32); Calcium, Blood 8.7 mg/dL (8.5-10.1); Chloride, Blood 103 mmol/L (98-108); Creatinine, Blood 1.07 mg/dL (0.60-1.20); Globulin, Blood 3.8 g/dL (2.2-4.0); Glomerular Filtration Rate >60 (60-); Glucose, Blood 111 mg/dL (70-99); Potassium, Blood 3.8 mmol/L (3.5-5.5); Sodium, Blood 134 mmol/L (136-145); Total Protein, Blood 7.5 g/dL (6.4-8.2)
[2019-02-26] MEDS ORDERED: LEVSOD100 PO (20:36)
[2019-02-26] MEDS ORDERED: BENZ100A PO (20:36)
[2019-02-26] MEDS ORDERED: PROAIR DIGIHAL90 MCG INH (20:37)
[2019-02-26] MEDS ORDERED: AMIT75 PO (20:37)
[2019-02-26] MEDS ORDERED: BUDE6HFA INH (20:37)
[2019-02-26] MEDS ORDERED: Flonase 0.05% N16 GM (20:38)
[2019-02-26] MEDS ORDERED: TAMS.4ER PO (20:38)
[2019-02-26] MEDS ORDERED: AMLOATOR PO (20:40)
[2019-02-26] MEDS ORDERED: VITAMIN D350000 UNIT PO (20:40)
[2019-02-26] MEDS ORDERED: OMEPRAZOLE20 MG PO (20:41)
[2019-02-26] MEDS ORDERED: METO25 PO (20:41)
[2019-02-26] MEDS ORDERED: MONT10T PO (20:41)
[2019-02-26] MEDS ORDERED: LOSA50 PO (20:42)
[2019-02-26] MEDS ORDERED: AZIT250 PO (21:24)
[2019-02-26] MEDS ORDERED: PRED10 PO (21:24)
[2019-02-26] MEDS ORDERED: Tamiflu75 MG PO (21:24)
== END 2019-02-26 22:03 | disposition home or self-care (01) ==
LOC: ER 19:29
PROVIDERS: Physician Assistant
DX: J44.1 Chronic obstructive pulmonary disease with (acute) exacerbation (principal); J10.1 Influenza due to other identified influenza virus with other respiratory manifestations; I10 Essential (primary) hypertension; Z87.891 Personal history of nicotine dependence; Z79.899 Other long term (current) drug therapy; Z79.51 Long term (current) use of inhaled steroids
CPT/HCPCS: 36415; 71046; 80053; 85025; 87804; 93005; 93010; 94644; 96374; 99283-25; J2930

== ENCOUNTER 2019-04-07 02:19 | Inpatient (IN) | payer MEDICARE, OTHER ==
[~2019-04-07] VITALS: Ht 167.6 cm; Wt 78.6 kg
[~2019-04-07 02:19] MED LIST changes: +AMIT75 PO; +AMLOATOR PO; +LEVSOD100 PO; +OMEPRAZOLE20 MG PO; +PROAIR DIGIHAL90 MCG INH; +Tamiflu75 MG PO; +VITAMIN D350000 UNIT PO
[2019-04-07 02:47] LABS: BASOPHILS ABSOLUTE AUTO 0.05 K/mm3 (0.00-0.23); BASOPHILS PERCENT AUTO 0 % (0-2); EOSINOPHILS ABSOLUTE AUTO 0.66 K/mm3 (0.00-0.68); EOSINOPHILS PERCENT AUTO 4 % (0-6); Hematocrit 40.7 % (37.0-53.0); Hemoglobin 13.3 g/dL (13.5-17.5); IMMATURE GRAN ABSOLUTE AUTO 0.08 K/mm3 (0.00-0.10); IMMATURE GRAN PERCENT AUTO 1 % (0-1); LYMPHOCYTES ABSOLUTE AUTO 4.25 K/mm3 (0.84-5.20); LYMPHOCYTES PERCENT AUTO 24 % (21-46); MONOCYTES ABSOLUTE AUTO 1.54 K/mm3 (0.16-1.47); MONOCYTES PERCENT AUTO 9 % (4-13); Mean Corpuscular HGB 31.1 pg (26.0-34.0); Mean Corpuscular HGB Conc 32.7 g/dL (31.5-36.5); Mean Corpuscular Volume 95 fL (80-100); Mean Platelet Volume 9.2 fL (9.1-12.4); NEUTROPHILS ABSOLUTE AUTO 10.98 K/mm3 (1.96-9.15); NEUTROPHILS PERCENT AUTO 62 % (41-73); Platelet Count 400 K/mm3 (150-400); RDW Coefficient Variation 14.3 % (11.7-14.2); RDW Standard Deviation 49.8 fL (35.1-46.3); Red Blood Cell Count 4.27 M/mm3 (4.30-5.90); White Blood Cell Count 17.56 K/mm3 (4.00-11.30)
[2019-04-07 03:10] LABS: Alanine Aminotransfer (ALT/SGP 33 U/L (12-78); Albumin, Blood 4.2 g/dL (3.4-5.0); Albumin/Globulin Ratio 1.1 (0.8-1.8); Alk Phos 78 U/L (50-136); Anion Gap 7 mmol/L (6-16); Aspartate Aminotrans (AST/SGOT 20 U/L (12-37); Bilirubin, Total 0.3 mg/dL (0.1-1.0); Blood Urea Nitrogen 21 mg/dL (8-24); Bun/Creatinine Ratio 20.4 (12.0-20.0); CO2, Blood 26 mmol/L (21-32); Calcium, Blood 9.3 mg/dL (8.5-10.1); Chloride, Blood 107 mmol/L (98-108); Creatinine, Blood 1.03 mg/dL (0.60-1.20); Globulin, Blood 3.7 g/dL (2.2-4.0); Glomerular Filtration Rate >60 (60-); Glucose, Blood 98 mg/dL (70-99); Sodium, Blood 140 mmol/L (136-145); Total Protein, Blood 7.9 g/dL (6.4-8.2); Troponin I <0.015 ng/mL (0.000-0.040)
--- NOTE | 2019-04-07 05:50 | NUR ---
ASSUMED PT CARE AT 0440 PT ARRIVED ON UNIT FROM ER D/T COPD EXACERBATION. PT ARRIVED ON BIPAP 02/10; FIO2 35%; RR 20'S. PT BECOMES VERY SOB WITH EXERTION. BIOX REMAINS IN THE 90'S. INSPIRATORY AND EXPIRATORY WHEEZES NOTED. ALERT AND ORIENTED AND ABLE TO MAKE NEEDS KNOWN. STATES HE GENERALLY WEARS 2.5L OF OXYGEN AT HOME AT BASELINE. NON-COMPLIANT WITH CPAP USE; EDUCATION GIVEN, WHICH WAS RECEIVED WELL WITH APPROPRIATE QUESTIONS ASKED. DR. RUGGIERO SHORTLY TO ROOM AFTER ARRIVAL. NEW ORDERS FOR 0.5MG OF ATIVAN FOR ANXIETY. LEFT FOR THE NIGHT. CALL LIGHT WITHIN REACH; ABLE TO MAKE NEEDS KNOWN. WILL CONTINUE TO MONITOR UNTIL REPORT IS HANDED OFF TO ONCOMING RN.
[2019-04-07 07:36] LABS: Adenovirus Not Detected (NOT DETECT); Bordetella pertussis Not Detected (NOT DETECT); Chlamydophila pneumoniae Not Detected (NOT DETECT); Coronavirus 229E Not Detected (NOT DETECT); Coronavirus HKU1 Not Detected (NOT DETECT); Coronavirus NL63 Not Detected (NOT DETECT); Coronavirus OC43 Not Detected (NOT DETECT); Human Metapneumovirus Not Detected (NOT DETECT); Human Rhinovirus/Enterovirus Not Detected (NOT DETECT); Influenza A Not Detected (NOT DETECT); Influenza A/2009-H1 Not Detected (NOT DETECT); Influenza A/H1 Not Detected (NOT DETECT); Influenza A/H3 Not Detected (NOT DETECT); Influenza B Not Detected (NOT DETECT); Mycoplasma pneumoniae Not Detected (NOT DETECT); Parainfluenza Virus 1 Not Detected (NOT DETECT); Parainfluenza Virus 2 Not Detected (NOT DETECT); Parainfluenza Virus 3 Not Detected (NOT DETECT); Parainfluenza Virus 4 Not Detected (NOT DETECT); Respiratory Syncytial Virus Not Detected (NOT DETECT)
--- NOTE | 2019-04-07 07:43 | NUR ---
INITIAL ASSESSMENT PATIENT SLEEPING SOUNDLY ON BIPAP UPON ENTERING ROOM. PATIENT WOKE EASILY TO VERBAL STIMULI. PATIENT ALERT AND ORIENTED X 4, AFEBRILE. PATIENT DENIES PAIN OR DISCOMFORT AT THIS TIME. BIPAP SETTINGS AT 14/7, RATE OF 14, 35% FIO2. PATIENT STATES HE WEARS 2.5 L NC AT HS ONLY NORMALLY BUT THAT LATELY HE HAS HAD TO WEAR IT DAY AND NIGHT. PATIENT ALSO STATES THAT HE WAS SUPPOSED TO WEAR CPAP AT NIGHT FOR HIS GERARDO BUT WASN'T COMPLIANT SO THE COMPANY TOOK IT BACK. LUNGS WHEEZY THROUGHOUT AND COARSE IN THE LOWER LOBES. PATIENT STATES HE HAS HAD A DRY COUGH. PATIENT IN SR, HR IN THE 90S. BP STABLE. PULSES STRONG. ABDOMEN MODERATELY DISTENDED, SOFT, NONTENDER, WITH NORMOACTIVE BS NOTED. URINAL AT BEDSIDE. SKIN APPEARS WNL. IV FLUSHED AND SALINE LOCKED. BED LOW, CALL LIGHT IN REACH. WILL CONTINUE TO MONITOR PATIENT FREQUENTLY THROUGHOUT SHIFT.
--- NOTE | 2019-04-07 08:47 | NUR ---
PATIENT STATES LAST BM YESTERDAY. PATIENT STATES HE DOES STRUGGLE WITH CONSTIPATION BUT DID NOT HAVE ANY TROUBLE YESTERDAY HAVING A BM.
--- NOTE | 2019-04-07 10:13 | NUR ---
PATIENT COMPLAINS OF ABDOMINAL PAIN FROM COUGHING SO MUCH. PATIENT STATES THAT TYLENOL DOESN'T DO ANYTHING FOR HIM AND THAT NORCO, VICODIN AND FENTANYL HAVE ALL WORKED FOR HIM IN THE PAST. PATIENT REQUESTING ATIVAN AND MUSCLE RELAXER WELL. PATIENT INFORMED THAT HE CANNOT HAVE THE PRN ATIVAN AGAIN UNTIL 1400. DR. QUACHTRATE CALLED AND INFORMED. ORDER FOR PRN NORCO RECEIVED.
--- NOTE | 2019-04-07 13:20 | NUR ---
PATIENT SITTING ON SIDE OF BED EATING LUNCH. PATIENT GIVEN PRN COUGH MEDICINE FOR COUGH. PATIENT STATES PAIN IS MANAGEABLE AT THIS TIME. PATIENT AFEBRILE. PATIENT SATTING 90% AND GREATER ON 4 L NC[address] PATIENT IN ST, HR IN THE 1-TEENS. BP STABLE. NO OTHER ACUTE CHANGES TO NOTE ON AT THIS TIME. WILL CONTINUE TO MONITOR.
--- NOTE | 2019-04-07 16:31 | NUR ---
PATIENT RESTING QUIETLY IN BED, WATCHING TV. PATIENT HAS NO COMPLAINTS. AFEBRILE. PATIENT REMAINS SATTING 90% AND GREATER ON [address] L NC[address] PATIENT IN ST, HR IN THE 1-TEENS. BP STABLE. NO ACUTE CHANGES TO NOTE ON. WILL CONTINUE TO MONITOR.
--- NOTE | 2019-04-07 18:29 | NUR ---
SHIFT SUMMARY PATIENT REMAINED ALERT AND ORIENTED X 4, AFEBRILE. PATIENT HAD COMPLAINT OF STOMACH PAIN FROM COUGHING OT DURING SHIFT. PATIENT REPORTED RELIEF WITH PRN NORCO. PATIENT REMAINED SATTING 90% AND GREATER ON EITHER 4 L NC OR BIPAP 14/7, 35% FIO2. PATIENT CONTINUED TO HAVE WHEEZES THROUGHOUT AND COARSENESS AUSCULTATED IN LOWER LUNG LOBES. PATIENT GIVEN PRN COUGH MEDICINE X 3. PATIENT REMAINED SR TO ST, HR 90S TO 1-TEENS. BP REMAINED STABLE. PATIENT DID NOT HAVE BM THIS SHIFT. PATIENT TOLERATED REGULAR DIET WELL AND HAD STRONG APPETITE. PATIENT VOIDED INTO BEDSIDE URINAL. HOME DOSE OF FLOMAX SCHEDULED TO BE GIVEN TONIGHT. SKIN REMAINED WNL. PATIENT REPOSITIONED SELF IN BED AND SBA. PATIENT RECEIVED ROCEPHIN AND AZITHROMYCIN FOR ANTIBIOTICS. FAMILY HERE TO VISIT AT THIS TIME. NO COMPLAINTS AT THIS TIME. BED LOW, CALL LIGHT IN REACH. REPORT WILL BE GIVEN TO ASSUMING BIOCHEMICAL DEVELOPMENT ENGINEER NURSE SHORTLY.
--- NOTE | 2019-04-07 21:03 | NUR ---
ASSUMPTION OF CARE ASSUMED CARE OF PT @ 1900. PT SITTING UP AT EDGE OF BED, INTERACTING WITH FAMILY, A&O x4. COMPLAINS OF 9/10 PAIN, PRN PAIN MEDICATION PROVIDED. LS WHEEZY T/O, O2 SATURATIONS> 90% ON 4L PER NC. MONITOR SHOWS SINUS TACH, HR 100-120, BP STABLE. URINAL AT BEDSIDE, PT STS NO GI/ ISSUES. CALL LIGHT WITHIN REACH.
[2019-04-08 04:09] LABS: BASOPHILS ABSOLUTE AUTO 0.03 K/mm3 (0.00-0.23); BASOPHILS PERCENT AUTO 0 % (0-2); EOSINOPHILS PERCENT AUTO 0 % (0-6); Hematocrit 40.1 % (37.0-53.0); Hemoglobin 12.7 g/dL (13.5-17.5); IMMATURE GRAN ABSOLUTE AUTO 0.24 K/mm3 (0.00-0.10); IMMATURE GRAN PERCENT AUTO 1 % (0-1); LYMPHOCYTES PERCENT AUTO 9 % (21-46); MONOCYTES ABSOLUTE AUTO 0.81 K/mm3 (0.16-1.47); MONOCYTES PERCENT AUTO 4 % (4-13); Mean Corpuscular HGB 30.7 pg (26.0-34.0); Mean Corpuscular HGB Conc 31.7 g/dL (31.5-36.5); Mean Corpuscular Volume 97 fL (80-100); Mean Platelet Volume 9.3 fL (9.1-12.4); NEUTROPHILS ABSOLUTE AUTO 19.35 K/mm3 (1.96-9.15); NEUTROPHILS PERCENT AUTO 87 % (41-73); Platelet Count 381 K/mm3 (150-400); RDW Coefficient Variation 14.6 % (11.7-14.2); RDW Standard Deviation 51.5 fL (35.1-46.3); Red Blood Cell Count 4.14 M/mm3 (4.30-5.90); White Blood Cell Count 22.33 K/mm3 (4.00-11.30)
[2019-04-08 04:27] LABS: Alanine Aminotransfer (ALT/SGP 31 U/L (12-78); Albumin, Blood 4.1 g/dL (3.4-5.0); Albumin/Globulin Ratio 1.1 (0.8-1.8); Alk Phos 74 U/L (50-136); Anion Gap 8 mmol/L (6-16); Aspartate Aminotrans (AST/SGOT 20 U/L (12-37); Bilirubin, Total 0.2 mg/dL (0.1-1.0); Blood Urea Nitrogen 25 mg/dL (8-24); Bun/Creatinine Ratio 22.7 (12.0-20.0); CO2, Blood 26 mmol/L (21-32); Calcium, Blood 9.5 mg/dL (8.5-10.1); Chloride, Blood 104 mmol/L (98-108); Globulin, Blood 3.9 g/dL (2.2-4.0); Glomerular Filtration Rate >60 (60-); Glucose, Blood 145 mg/dL (70-99); Potassium, Blood 4.2 mmol/L (3.5-5.5); Sodium, Blood 138 mmol/L (136-145)
--- NOTE | 2019-04-08 06:05 | NUR ---
SHIFT SUMMARY PT SLEPT VERY LITTLE T/O NIGHT, REMAINS A&O, COOPERATIVE AND FOLLOWING DIRECTIONS. PT REQUESTING FREQUENT BREATHING TREATMENTS, LS WHEEZY T/O BUT IMPROVED FROM BEGINNING OF SHIFT. ATTEMPTED TO DECREASE SUPPLEMENTAL O2 TO 3L, PT DID NOT TOLERATE WELL, BECAME ANXIOUS AND SOB, O2 PER NC INCREASED BACK TO 4L. MONITOR SHOWS SINUS TACH, HR 100-120, BP STABLE. PT ABLE TO INDEPENDENTLY STAND AT BEDSIDE TO USE URINAL. PT WORRIED ABOUT RECEIVING DAILY HOME MEDICATIONS, STS HAS RECENTLY STARTED NEW MEDICATIONS. INFORMED PT TO HAVE SPOUSE BRING UPDATED MED LIST OR WE CAN CALL HIS PHARMACY WHEN THEY OPEN TO ENSURE ACCURATE MEDREC.
--- NOTE | 2019-04-08 07:10 | NUR ---
START OF SHIFT NOTE: RECEIVED REPORT FROM TING TAI RN, ASSUMED CARE, PATIENT IS AWAKE, SMILING, REQUESTING PAIN MEDICATION AT THIS TIME, RECEIVED NORCO 10/325, NO PROBLEM SWALLOWING, PATIENT IS ALERT AND ORIENTED, TALKATIVE, PLEASANT, ON 4L NC SATING AT 94 %, LUNG SOUNDS ARE SLIGHTLY COARSE AND DIMINISHED, DID NOT REQUIRE BIPAP/CPAP OVERNIGHT, WILL HAVE 2 VIEW CHEST XRAY THIS AM, PATIENT WAS NOTIFIED, AFEBRILE, BOWEL TONES HYPOACTIVE, USES URINAL AND HAS CLEAR YELLOW URINE OUTPUT, PEDAL PULSES ARE PALPABLE, NO OTHER NEEDS REQUIRED AT THIS TIME, ISTRATE IN TO SEE PATIENT, WILL WRITE FOR STATUS CHANGE POSSIBLY MEDICAL, CALL LIGHT IN REACH, WILL CONTINUE TO MONITOR.
--- NOTE | 2019-04-08 08:07 | NUR ---
DR. QUACHTRATE IN TO SEE PATIENT, WILL WRITE NEW ORDERS.
[2019-04-08] MEDS ORDERED: BUPR150ER PO (09:14)
[2019-04-08] MEDS ORDERED: DULO60 PO (09:15)
[2019-04-08] MEDS ORDERED: BUDE6HFA INH (09:18)
[2019-04-08] MEDS ORDERED: SPIRIVA RESPIMAT4 GM IH (09:19)
--- NOTE | 2019-04-08 09:21 | NUR ---
PATIENT'S MED REC UPDATED, WAS INCOMPLETE, DAILY MEDICATIONS ADDED, PHARMACY NOTIFIED, SPOKE WITH FIDEL NURSERY RN.
--- NOTE | 2019-04-08 10:36 | NUR ---
PATIENT RESTING COMFORTABLY, CALL LIGHT IN REACH, WILL CONTINUE TO MONITOR.
--- NOTE | 2019-04-08 11:27 | NUR ---
PATIENT ASKED FOR ALLERGY MEDS D/T HIS POSTNASAL DRIP, DR. PRITCHARD NOTIFIED, NEW ORDER RECEIVED.
--- NOTE | 2019-04-08 15:07 | NUR ---
REPORT CALLED TO VIPIN SPENCE, ON MEDICAL FLOOR, PATIENT WILL BE TRANSFERRED TO ROOM 334 VIA WHEELCHAIR WITH ALL BELONGINGS AND MEDICATIONS.
--- NOTE | 2019-04-08 18:45 | NUR ---
SHIFT SUMMARY PATIENT WAS FROM ICU TODAY. HE HAS BEEN ALERT AND ORIENTED. DENIED ANY CONCERNS. HE IS INDEPENDENT IN THE ROOM. CALLS APPROPRIATELY. I WAS TOLD IN ICU HE WAS INAPROPRIATE HAS BEEN APPROPRIATE ON THE FLOOR.
--- NOTE | 2019-04-08 21:22 | NUR ---
MADE AWARE OF PERSITENT HTN AND TACHYCARDIA SINCE START OF SHIFT. BP 170'S/105 AND HR 130'S-160'S IN S.TACH/POSSIBLE A.FLUTTER. ALSO ALERTED THAT HOME METOPROLOL AND LOSARTAN HAVEN'T BEEN ORDERED THIS ADMIT. BOTH MEDS WERE RX'D NOW PER HOME MED LIST AND WILL BE COMMENCED UPON VERIFICATION BY PHARMACY. WILL RECHECK VITALS AFTER QUALITY AUDITOR.
--- NOTE | 2019-04-08 23:05 | NUR ---
BP AND HR IMPROVED AFTER BEING GIVEN LOSARTAN AND METOPROLOL, NOW 143/89 W/HR 115 BPM. COUGH BETTER WELL AFTER RECIEVEING GUAIFENESIN W/CODEINE PRN.
--- NOTE | 2019-04-09 04:52 | NUR ---
SUMMARY: PT A/OX4, INDEPENDENT IN ROOM AND CALLS OFTEN WA FOR NON-ACUTE NEEDS. PT BEGAN SHIFT HYPERTENSIVE, TACHYCARDIC AND WAS HAVING FREQUENT COUGHING FITS LEADING TO TACHYPNEA. MD ALERTED W/HOME MEDS (LOSARTAN AND METOPROLOL) RX'D AND RECIEVED. PT ALSO HAD TESSALON PERLS AND GUAIFENESIN W/CODEINE FOR RELIEF OF COUGH. BP AND HR TRENDED DOWN T/O NOCTE AND IS NOW WNL. SPO2 WNL ON 3L O2 VIA NC. RESPS E/U AT REST BUT SOB W/EXERTION. NORCO RECIEVED PRN FOR TOLERABLE RELIEF OF BACK AND SIDE PAIN. PT IS NSR-S.TACH PER TELEMETRY, HR 90'S NOW BUT WAS 130'S AT REST AND 150'S W/EXERTION PRIOR TO RECIEVING METOPROLOL. ONCE PT SETTLED HE SLEPT W/O S/S DISTRESS EXCEPT WHEN OOB TO USE TOILET. NO ACUTE CHANGES, VSS/AFEBRILE. WCTM AND REPORT TO DAY RN.
[2019-04-09 05:33] LABS: BASOPHILS ABSOLUTE AUTO 0.02 K/mm3 (0.00-0.23); BASOPHILS PERCENT AUTO 0 % (0-2); EOSINOPHILS PERCENT AUTO 0 % (0-6); Hematocrit 35.8 % (37.0-53.0); Hemoglobin 11.5 g/dL (13.5-17.5); IMMATURE GRAN ABSOLUTE AUTO 0.21 K/mm3 (0.00-0.10); IMMATURE GRAN PERCENT AUTO 1 % (0-1); LYMPHOCYTES ABSOLUTE AUTO 1.89 K/mm3 (0.84-5.20); LYMPHOCYTES PERCENT AUTO 9 % (21-46); MONOCYTES ABSOLUTE AUTO 1.59 K/mm3 (0.16-1.47); MONOCYTES PERCENT AUTO 7 % (4-13); Mean Corpuscular HGB 30.7 pg (26.0-34.0); Mean Corpuscular HGB Conc 32.1 g/dL (31.5-36.5); Mean Corpuscular Volume 96 fL (80-100); Mean Platelet Volume 9.4 fL (9.1-12.4); NEUTROPHILS ABSOLUTE AUTO 18.08 K/mm3 (1.96-9.15); NEUTROPHILS PERCENT AUTO 83 % (41-73); Platelet Count 344 K/mm3 (150-400); RDW Coefficient Variation 14.5 % (11.7-14.2); RDW Standard Deviation 50.3 fL (35.1-46.3); Red Blood Cell Count 3.75 M/mm3 (4.30-5.90); White Blood Cell Count 21.79 K/mm3 (4.00-11.30)
[2019-04-09 05:55] LABS: Anion Gap 7 mmol/L (6-16); Blood Urea Nitrogen 29 mg/dL (8-24); Bun/Creatinine Ratio 26.1 (12.0-20.0); CO2, Blood 27 mmol/L (21-32); Calcium, Blood 9.3 mg/dL (8.5-10.1); Chloride, Blood 104 mmol/L (98-108); Creatinine, Blood 1.11 mg/dL (0.60-1.20); Glomerular Filtration Rate >60 (60-); Glucose, Blood 116 mg/dL (70-99); Potassium, Blood 4.3 mmol/L (3.5-5.5); Sodium, Blood 138 mmol/L (136-145)
[2019-04-09] MEDS ORDERED: ACET325 PO (12:34)
[2019-04-09] MEDS ORDERED: CEFP200 PO (12:34)
[2019-04-09] MEDS ORDERED: AZIT500 PO (12:34)
[2019-04-09] MEDS ORDERED: Q-Tussin100 MG/5 M PO (12:36)
[2019-04-09] MEDS ORDERED: Culturelle1 CAP PO (12:36)
[2019-04-09] MEDS ORDERED: Robaxin750 MG PO (12:36)
[2019-04-09] MEDS ORDERED: Nicoderm Cq1 EAC1 TOP (12:37)
[2019-04-09] MEDS ORDERED: NORCO 10-325 T1 EACH PO (12:47)
--- NOTE | 2019-04-09 13:37 | NUR ---
DISCHARGE SUMMARY PATIENT IS PLEASANT, ALERT AND ORIENTED. HE HAS OXYGEN AT HOME. NO ACUTE CONCERNS AT THIS ITRI. ALL MEDICATIONS WERE SENT TO THE PHARMACY OF PATIENTS CHOICE. PATIENT WAS WHEELED OUT. IV WAS REMOVED.
== END 2019-04-09 13:04 | disposition home or self-care (01) | DRG 193 ==
LOC: ER 02:19 → EDBEDREQ 04:29 → ICUW 04:31 → MEDS 04-08 15:47
PROVIDERS: Emergency Medicine; Family Medicine; ADMIT Internal Medicine
DX: J18.9 Pneumonia, unspecified organism (principal); J96.21 Acute and chronic respiratory failure with hypoxia; J96.22 Acute and chronic respiratory failure with hypercapnia; J44.0 Chronic obstructive pulmonary disease with (acute) lower respiratory infection; J44.1 Chronic obstructive pulmonary disease with (acute) exacerbation; E03.9 Hypothyroidism, unspecified; F41.8 Other specified anxiety disorders; G89.29 Other chronic pain; Z99.81 Dependence on supplemental oxygen; M79.7 Fibromyalgia; N40.0 Benign prostatic hyperplasia without lower urinary tract symptoms
CPT/HCPCS: 0099U; 36415; 71045; 71046; 80048; 80053; 83735; 83880; 84145; 84484; 85025; 87070; 87205; 90686; 93005; 93010; 94640; 94644; 94660; 94760; 96374; 96375; 99285-25; G0008; J0456; J0696; J1650; J2060; J2930; J7050; J7512

== ENCOUNTER → 2020-01-18 | Outpatient (CLI) | payer MEDICARE, OTHER ==
[~2020-01-18] MED LIST changes: +ACET325 PO; +BUPR150ER PO; +CEFP200 PO; +Culturelle1 CAP PO; +ERYT1OIN LEFTEYE; +NORCO 10-325 T1 EACH PO; +Nicoderm Cq1 EAC1 TOP; +Norco 10-325 T1 EACH PO; +Robaxin750 MG PO; +SPIRIVA RESPIMAT4 GM IH
== END ==
LOC: LAB SHORT 09:00 → PLD 09:00
DX: D48.5 Neoplasm of uncertain behavior of skin (principal)
CPT/HCPCS: 88305

== ENCOUNTER → 2021-01-20 | Outpatient (CLI) | payer OTHER | END | disposition home or self-care (01) | LOC: LAB SHORT 15:00 | DX: L81.4 Other melanin hyperpigmentation (principal) | CPT/HCPCS: 88305 ==

== ENCOUNTER 2021-11-17 01:08 | Day surgery (SDC) | payer OTHER ==
[~2021-11-17 01:08] MED LIST changes: +AMOCLA875 PO; +IBUP400 PO
== END 2021-11-17 23:01 | disposition home or self-care (01) ==
LOC: WOUND 01:08
DX: S81.852S Open bite, left lower leg, sequela (principal); W54.0XXS Bitten by dog, sequela; I73.9 Peripheral vascular disease, unspecified; J44.9 Chronic obstructive pulmonary disease, unspecified; I10 Essential (primary) hypertension; R73.03 Prediabetes; Z87.891 Personal history of nicotine dependence
CPT/HCPCS: A9270; G0463

== ENCOUNTER 2021-11-26 06:30 | Day surgery (SDC) | payer OTHER | END 2021-11-26 23:25 | disposition home or self-care (01) | LOC: WOUND 06:30 | DX: S81.852S Open bite, left lower leg, sequela (principal); X58.XXXS Exposure to other specified factors, sequela; I73.9 Peripheral vascular disease, unspecified; J44.9 Chronic obstructive pulmonary disease, unspecified; I10 Essential (primary) hypertension | CPT/HCPCS: A9270 ==

== ENCOUNTER 2021-12-19 02:21 | Day surgery (SDC) | payer OTHER | END 2021-12-19 23:18 | disposition home or self-care (01) | LOC: WOUND 02:21 | DX: S81.852S Open bite, left lower leg, sequela (principal); W54.0XXS Bitten by dog, sequela; I73.9 Peripheral vascular disease, unspecified; J44.9 Chronic obstructive pulmonary disease, unspecified; I10 Essential (primary) hypertension | CPT/HCPCS: A9270; G0463 ==

== ENCOUNTER 2022-01-02 02:35 | Day surgery (SDC) | payer OTHER | END 2022-01-02 23:28 | disposition home or self-care (01) | LOC: WOUND 02:35 | DX: S81.852A Open bite, left lower leg, initial encounter (principal); I73.9 Peripheral vascular disease, unspecified; J44.9 Chronic obstructive pulmonary disease, unspecified; I10 Essential (primary) hypertension; W54.0XXA Bitten by dog, initial encounter | CPT/HCPCS: A9270; G0463 ==

== ENCOUNTER 2022-01-09 00:36 | Day surgery (SDC) | payer OTHER | END 2022-01-09 23:12 | disposition home or self-care (01) | LOC: WOUND 00:36 | DX: Z09 Encounter for follow-up examination after completed treatment for conditions other than malignant neoplasm (principal); I73.9 Peripheral vascular disease, unspecified; J44.9 Chronic obstructive pulmonary disease, unspecified; I10 Essential (primary) hypertension; Z87.2 Personal history of diseases of the skin and subcutaneous tissue | CPT/HCPCS: A9270; G0463 ==

== ENCOUNTER → 2024-04-24 | Outpatient (CLI) | payer OTHER ==
[~2024-04-24] MED LIST changes: +ATOR40TA PO; +Aspir 8181 MG PO; +B-12500 MC2 PO; +Bisoprolol Fumar5 MG PO; +CODEINE-GUAIFE120 M1 PO; +FERSU300 PO; +FLUT1DIS2 INH; +FURO20 PO; +OMEP20ER PO; -OMEPRAZOLE20 MG PO; +Vitamin D1000 UNI1 PO
[2024-04-25 12:27] LABS: Stool Occult Bld Immuno 1 Positive (NEGATIVE)
== END ==
LOC: LAB 18:14 → LAB SHORT 18:14
PROVIDERS: Nurse Practitioner Family
DX: D50.9 Iron deficiency anemia, unspecified (principal)
CPT/HCPCS: G0328

== ENCOUNTER 2024-06-13 06:13 | Day surgery (SDC) | payer OTHER ==
[~2024-06-13] VITALS: Ht 167.6 cm; Wt 81.3 kg
[~2024-06-13 06:13] MED LIST changes: -ATOR40TA PO; +ATOR80 PO; +EUTHYROX125 MCG PO; -LEVSOD100 PO; +TRELEGY ELLIPT1 EACH INH
[2024-06-13 06:32] VITALS: BP 146/73
[2024-06-13] MEDS ORDERED: HYDACE10B PO (06:34)
[2024-06-13] MEDS ORDERED: Lactated Ringer's 1,000 ML IV SCH (06:45)
[2024-06-13] MEDS ORDERED: propofoL 60 ML IV ONE (07:17)
[2024-06-13] MEDS ORDERED: Benzocaine Oral Spray 0.5ML UD ONE (07:17)
--- NOTE | 2024-06-13 07:42 | NUR ---
06/13/24 0741 Orlando Johnson MONITOR INTACT WITH CONTINUOUS PULSE OXIMETRY, CONTINUOUS END TITAL CO2, 3-LEAD EKG AND INTERMITTENT BLOOD PRESSURE. ANESTHESIA PER DR. WARREN
[2024-06-13 08:24] VITALS: BP 118/61
[2024-06-13 08:30] VITALS: BP 122/73
--- NOTE | 2024-06-13 08:33 | NUR ---
PT GETTING DRESSED AT THIS TIME W/ HELP FROM . D/C INSTRUCTIONS GIVEN, UNDERSTANDING VERBALIZED. PT DENIES PAIN/NAUSEA, VSS, ON RA. NO VISIBLE SIGNS OF DISTRESS NOTED.
--- NOTE | 2024-06-13 08:46 | NUR ---
PT LEAVING DAY SURGERY VIA WC AT THIS TIME. PT HAS ALL BELONGINGS W/ HIM. PT TO BE DRIVEN HOME BY IN PRIVATE VEHICLE. NO VISIBLE SIGNS OF DISTRESS NOTED.
== END 2024-06-13 22:54 | disposition home or self-care (01) ==
LOC: ORSCMMR 06:13 → ORD 07:30 → ORSCMMR 22:54
PROVIDERS: Internal Medicine Gastroenterology
PROC: 0DB78ZX Excision of Stomach, Pylorus, Via Natural or Artificial Opening Endoscopic, Diagnostic (ICD-10-PCS; principal; 2024-06-13 07:30)
PROC: 0DB98ZX Excision of Duodenum, Via Natural or Artificial Opening Endoscopic, Diagnostic (ICD-10-PCS; principal; 2024-06-13 07:30)
PROC: 0DBH8ZX Excision of Cecum, Via Natural or Artificial Opening Endoscopic, Diagnostic (ICD-10-PCS; principal; 2024-06-13 07:30)
PROC: 0DBM8ZX Excision of Descending Colon, Via Natural or Artificial Opening Endoscopic, Diagnostic (ICD-10-PCS; principal; 2024-06-13 07:30)
DX: R19.5 Other fecal abnormalities (principal); K29.80 Duodenitis without bleeding; D50.9 Iron deficiency anemia, unspecified; K21.9 Gastro-esophageal reflux disease without esophagitis; K57.30 Diverticulosis of large intestine without perforation or abscess without bleeding; D12.0 Benign neoplasm of cecum; D12.4 Benign neoplasm of descending colon; I10 Essential (primary) hypertension; I50.9 Heart failure, unspecified; J44.9 Chronic obstructive pulmonary disease, unspecified; G47.33 Obstructive sleep apnea (adult) (pediatric); F17.210 Nicotine dependence, cigarettes, uncomplicated; N40.0 Benign prostatic hyperplasia without lower urinary tract symptoms; E03.9 Hypothyroidism, unspecified; E11.40 Type 2 diabetes mellitus with diabetic neuropathy, unspecified; Z79.899 Other long term (current) drug therapy; Z79.82 Long term (current) use of aspirin
CPT/HCPCS: 82947; 88305; 88342; A9270; J2704; J7120

== ENCOUNTER → 2024-08-28 | Outpatient (CLI) | payer OTHER | LOC: LAB SHORT 09:40 → LAB 09:40 | DX: M67.472 Ganglion, left ankle and foot (principal) | CPT/HCPCS: 88304 ==